=== PATIENT | male | born 1980 | race Asian ===

== ENCOUNTER 2018-02-15 23:42 | Emergency (ER) | payer OTHER ==
[~2018-02-15] VITALS: Ht 170.2 cm; Wt 70.8 kg
[2018-02-15 23:45] VITALS: BP_SYST 130
[2018-02-16] MEDS ORDERED: DIPH-TET-PERTUS Vaccine 0.5 ML VIAL (ADACEL) I.M. ONE
[2018-02-16 00:37] VITALS: BP_SYST 130
== END 2018-02-16 00:37 ==
LOC: SED 23:42
DX: S60.511A Abrasion of right hand, initial encounter (principal); Z88.2 Allergy status to sulfonamides; V89.2XXA Person injured in unspecified motor-vehicle accident, traffic, initial encounter; Y93.89 Activity, other specified; Y92.411 Interstate highway as the place of occurrence of the external cause; Y99.8 Other external cause status
CPT/HCPCS: 90715; 99283